=== PATIENT | male | born 1960 | race Caucasian/White ===

== ENCOUNTER 2020-08-22 10:52 | Outpatient (REF) | payer OTHER, SELFPAY ==
[2020-08-22 11:10] LABS: MANUAL DIFF FLAG NO
[2020-08-22 11:13] LABS: Basophils Percent Auto 0.3 % (0-2); Eosinophils Absolute Auto 0.2 X10*3/uL (0.0-0.4); Eosinophils Percent Auto 3.6 % (0-4); Hematocrit 45.2 % (42-52); Hemoglobin 15.3 g/dl (14.0-18.0); Imm Gran Abs Auto 0.03 X10*3/uL (0.00-0.03); Imm Gran Pct Auto 0.5 % (0.0-0.4); Lymphocytes Absolute Auto 1.9 X10*3/uL (1.2-4.9); Mean Corpuscular HGB Conc 33.8 g/dl (31.0-36.0); Mean Corpuscular Hemoglobin 29.1 pg (27.0-33.0); Mean Corpuscular Volume 86.1 fL (80-98); Mean Platelet Volume 9.2 fL (9.4-12.4); Monocytes Absolute Auto 0.5 X10*3/uL (0.1-1.2); Monocytes Percent Auto 8.4 % (2-11); Neutrophils Absolute Auto 3.4 X10*3/uL (2.0-8.3); Neutrophils Percent Auto 56.2 % (45-73); Platelet Count 214 X10*3/uL (160-400); Red Blood Count 5.25 X10*6/uL (4.60-5.80); Red Cell Distribution Width 12.8 % (11.0-16.0); White Blood Count 6.1 X10*3/uL (4.8-10.8)
[2020-08-22 11:40] LABS: Estimated Average Glucose 111 mg/dL; Hemoglobin A1c % 5.5 %
[2020-08-22 11:44] LABS: Anion Gap 12 (12-20); Blood Urea Nitrogen 15 mg/dL (9-16); Calcium 8.7 mg/dL (8.4-10.2); Carbon Dioxide 28 mmol/L (22-29); Chloride 103 mmol/L (96-108); Cholesterol 195 mg/dL; Estimated Glomerular Filt Rate > 60; Glucose Fasting 111 mg/dL (60-99); HDL Cholesterol 36 mg/dL; LDL Cholesterol Calculated 90 mg/dl; Potassium 4.2 mmol/L (3.3-5.1); Sodium 139 mmol/L (135-145); Triglycerides 345 mg/dL
[2020-08-22 12:07] LABS: Prostate Specific Antigen Scr 1.11 ng/mL (<0.05-4.0)
== END 2020-08-22 10:53 | disposition home or self-care (01) ==
LOC: HO.LAB 10:52
PROVIDERS: PCP Internal Medicine; Visit Provider Nurse Practitioner Family
DX: I10 Essential (primary) hypertension (principal); Z12.5 Encounter for screening for malignant neoplasm of prostate
CPT/HCPCS: 36415; 80048; 80061; 83036; 84153; 85025

== ENCOUNTER 2021-10-19 04:20 | Emergency (ER) | payer OTHER, SELFPAY ==
[2021-10-19 04:39] VITALS: BP 112/74; PULSE 86; RESP 18; TEMP 36.8; O2SAT 96; BMI 34.2
--- NOTE | 2021-10-19 05:07 | ED.GENADULT ---
HPI - General Adult General Chief complaint: General Medical Stated complaint: food poisoning ? n/v/d after dinner Time Seen by Provider: 10/19/21 05:07 Source: patient Mode of arrival: ambulatory Limitations: no limitations History of Present Illness HPI narrative: Patient with vomiting and diarrhea after eating a hamburger that might have been old, he is concerned about food poisoning Onset (ago): hour(s) Severity: moderate Pain Consistency: intermittent Associated symptoms: fever/chills and nausea/vomiting Treatments prior to arrival: none Related Data Previous Rx's Medication Instructions Recorded lisinopril 20 mg tablet 20 mg PO DAILY 90 Days #90 tab 05/07/21 silver sulfadiazine 1 % topical 1 appl TOPICAL BID 10 Days #85 g 05/07/21 cream (Silvadene) ondansetron 4 mg disintegrating 4 mg PO Q8H 4 Days #12 tab 10/19/21 tablet Allergies Allergy/AdvReac Type Severity Reaction Status Date / Time No Known Allergies Allergy Verified 05/07/21 11:42 Review of Systems Constitutional: Constitutional: Reports no additional constitutional complaints Eyes: Eyes: Reports no additional eye complaints ENT: Denies dizziness Cardiovascular: Cardiovascular: Reports no additional cardiovascular complaints Respiratory: Respiratory: Reports as per HPI Gastrointestinal: Gastrointestinal: Reports no additional gastrointestinal complaints Musculoskeletal: Musculoskeletal: Reports no additional musculoskeletal complaints Integumentary/Breasts: Skin/Breast: Denies rash Neurologic: Reports system reviewed and no additional complaints, except as documented, Denies dizziness and Denies Sensory deficit (Neuro) Psychiatric: Psychiatric: Denies anxiety PMFSH Past Medical History Medical History Benign essential hypertension Hypertension Hypertriglyceridemia Impaired glucose tolerance Obesity (BMI 30-39.9) Surgical History H/O left knee surgery Family History Family History Father Liver cancer Hepatitis C Diabetes Mother Hypertension Maternal Grandmother Cancer Brother Lung cancer Social History Social History Housing: House Alcohol intake: current Alcohol intake frequency: holidays/special occasions only Patient Tobacco Use Status: Never used Tobacco e-Cigarette/Vaping Use: Never Used Second Hand Smoke Exposure: No Advance Directives: No Advance Directives Information Provided: No service: No Current occupational status: employed Physical Exam ED Vital Signs: Vital Signs - 24 hr 10/19/21 04:39 Temperature 98.3 F Pulse Rate 86 Respiratory Rate 18 Blood Pressure 112/74 Pulse Oximetry 96 BMI result Body Mass Index 34.2 Const General: healthy appearing Nutritional Appearance: average body habitus Orientation/consciousness: oriented to person and patient oriented x3 Limitations: no limitations HENMT Head: Yes normal to inspection Ears: external ears normal General nose exam: Normal external nose present Mouth: Normal oral and palatal mucosa present and oropharynx normal Throat: Yes posterior oropharynx normal Eyes General: appearance normal, both eyes and all related structures Neck Neck: Yes normal visual inspection Chest Chest palpation & inspection: normal inspection of the chest Resp Auscultation: clear to auscultation bilaterally Cardio Jugular venous distension: no JVD Rate: regular rate Rhythm: regular rhythm Heart sounds: S1 normal heart sound present and S2 normal heart sound present GI Inspection: Yes normal to inspection Palpation (GI): Soft to palpation, nontender and No hepatosplenomegaly present Auscultation: normal bowel sounds General: Yes no CVA tenderness Back/Spine/Pelvis Back: no CVA tenderness Skin General skin exam: no rashes or lesions noted Neuro General: oriented to person and patient oriented x3 Cranial nerves: Yes CN's II-XII intact bilaterally Motor exam (neuro): 5/5 motor strength present throughout Sensory Exam: No Sensory deficit (Neuro) Extrem General: Yes normal to inspection Psych Appearance: grossly normal Course Reevaluation(s) Reevaluation #1: patient feeling better will dc on zofran and clear liquid diet Time: 07:14 Medical Decision Making Lab Data Result diagrams: 10/19/21 05:28 10/19/21 05:28 Labs: Lab Results 10/19/21 10/19/21 Range/Units 05:28 05:28 WBC 8.3 (4.8-10.8) X10*3/uL RBC 5.82 H (4.60-5.80) X10*6/uL Hgb 16.8 (14.0-18.0) g/dl Hct 49.5 (42.0-52.0) % MCV 85.1 (80.0-98.0) fL MCH 28.9 (27.0-33.0) pg MCHC 33.9 (31.0-36.0) g/dl RDW 12.6 (11.0-16.0) % Plt Count 201 (160-400) X10*3/uL MPV 9.2 L (9.4-12.4) fL Immature Gran % (Auto) 0.5 H (0.0-0.4) % Neut % (Auto) 91.0 H (45-73) % Lymph % (Auto) 3.7 L (20-40) % [place] % (Auto) 3.4 (2-11) % Eos % (Auto) 1.3 (0-4) % Baso % (Auto) 0.1 (0-2) % Lymph # (Auto) 0.3 L (1.2-4.9) X10*3/uL [place] # (Auto) 0.3 (0.1-1.2) X10*3/uL Eos # (Auto) 0.1 (0.0-0.4) X10*3/uL Baso # (Auto) 0.0 (0.0-0.2) X10*3/uL Abs Immat Gran (auto) 0.04 H (0.00-0.03) X10*3/uL Absolute Neuts (auto) 7.6 (2.0-8.3) x10*3/uL Absolute Nucleated RBC 0.000 (0.0-0.012) X10*3/uL Nucleated RBC % (auto) 0.0 (0.0-0.2) /100WBC Smear Tech's Comments VERIFIED Sodium 137 (135-145) mmol/L Potassium 5.1 D (3.3-5.1) mmol/L Chloride 102 (96-108) mmol/L Carbon Dioxide 29 (22-29) mmol/L Anion Gap 11 L (12-20) BUN 13 (9-16) mg/dL Creatinine 1.24 (0.5-1.4) mg/dL Estim Creat Clear Calc 87.3 Estimated GFR 60 Random Glucose 165 H (60-115) mg/dL Calcium 9.3 D (8.4-10.2) mg/dL Discharge Plan Discharge Clinical Impression: Nausea vomiting and diarrhea Patient Disposition: Home, Self-Care Instructions: Acute Nausea and Vomiting (ED), Acute Diarrhea (ED) Additional Instructions: clear liquids for 48 hours Prescriptions: New ondansetron 4 mg tablet,disintegrating 4 mg PO Q8H 4 Days Qty: 12 0RF No Action lisinopril 20 mg tablet 20 mg PO DAILY 90 Days Qty: 90 0RF silver sulfadiazine [Silvadene] 1 % cream 1 appl topical BID 10 Days Qty: 85 0RF Rx Instructions: apply a 1.5 mm thickness Referrals: Karla Steel MD [Primary Care Provider] - 1 week Stand Alone Forms: Work/School Release
[2021-10-19 05:32] LABS: Basophils Percent Auto 0.1 % (0-2); Eosinophils Absolute Auto 0.1 X10*3/uL (0.0-0.4); Eosinophils Percent Auto 1.3 % (0-4); Hematocrit 49.5 % (42.0-52.0); Hemoglobin 16.8 g/dl (14.0-18.0); Imm Gran Abs Auto 0.04 X10*3/uL (0.00-0.03); Imm Gran Pct Auto 0.5 % (0.0-0.4); Lymphocytes Absolute Auto 0.3 X10*3/uL (1.2-4.9); Lymphocytes Percent Auto 3.7 % (20-40); MANUAL DIFF FLAG SCAN; Mean Corpuscular HGB Conc 33.9 g/dl (31.0-36.0); Mean Corpuscular Hemoglobin 28.9 pg (27.0-33.0); Mean Corpuscular Volume 85.1 fL (80.0-98.0); Mean Platelet Volume 9.2 fL (9.4-12.4); Monocytes Absolute Auto 0.3 X10*3/uL (0.1-1.2); Monocytes Percent Auto 3.4 % (2-11); Neutrophils Absolute Auto 7.6 x10*3/uL (2.0-8.3); Platelet Count 201 X10*3/uL (160-400); Red Blood Count 5.82 X10*6/uL (4.60-5.80); Red Cell Distribution Width 12.6 % (11.0-16.0); SCAN SMEAR FLAG 1; White Blood Count 8.3 X10*3/uL (4.8-10.8)
[2021-10-19] MEDS: ondansetron HCL 4 MG/2 ML VIAL IVPUSH (05:32)
[2021-10-19 05:33] LABS: SLIDE REVIEW VERIFIED
[2021-10-19] MEDS: 0.9 % Sodium Chloride 500 ML 250 ML IVCONT (05:36)
[2021-10-19 05:52] LABS: Anion Gap 11 (12-20); Blood Urea Nitrogen 13 mg/dL (9-16); Calcium 9.3 mg/dL (8.4-10.2); Carbon Dioxide 29 mmol/L (22-29); Chloride 102 mmol/L (96-108); Creatinine Clr Calc Pharmacy 87.3; Estimated Glomerular Filt Rate 60; Glucose Random 165 mg/dL (60-115); Potassium 5.1 mmol/L (3.3-5.1); Sodium 137 mmol/L (135-145)
--- NOTE | 2021-10-19 07:12 | PC.NURSE ---
care assumed for pt at this time. ivf taken down and pt reports feeling much better. pt appears well and denies any complaints. at bedside. plan for covid swab and dc home.
[2021-10-19 07:17] VITALS: BP 116/68; PULSE 85; RESP 18; O2SAT 100
[2021-10-19 07:38] LABS: COVID-19 Test Negative (Negative); IDNOW Serial# 16C4AD1C
== END 2021-10-19 07:43 | disposition home or self-care (01) ==
PROVIDERS: Emergency Provider Emergency Medicine; PCP Internal Medicine
DX: R11.2 Nausea with vomiting, unspecified (principal); R19.7 Diarrhea, unspecified; Z20.822 Contact with and (suspected) exposure to COVID-19; Z79.899 Other long term (current) drug therapy
CPT/HCPCS: 36415; 80048; 85025; 87635; 96361; 96374; 99284; J2405

== ENCOUNTER 2023-10-31 15:27 | Outpatient (AMB) | payer OTHER, SELFPAY ==
[2023-10-31 15:51] VITALS: BP 132/94; PULSE 82; O2SAT 98; BMI 34.6
--- NOTE | 2023-10-31 15:51 | A.OFFPC_ITS ---
Vital Signs 10/31/23 15:51 10/31/23 16:28 Height 6 ft Weight 255 lb 0.2 oz BMI 34.6 BP 132/94 H 140/80 H Blood Pressure Location Lt brachial Lt brachial Position Sitting Pulse 82 Pulse Source Pulse Oximeter Pulse Oximetry (%) 98 Oxygen Delivery Method Room Air Intake Visit Reasons: Annual PE due for colonoscopy Docketing Specialist Required: No Allergies No Known Allergies Allergy (Verified 10/31/23 15:51) Medication List - Last Reconciled 10/31/23 by Karla Steel MD lisinopril 30 mg PO DAILY 90 days Tobacco use date assessed: 10/31/23 Dental Screening Dental Screen Date: 10/31/23 Did you have a dental visit in the last 12 months?: No Did you have a dental problem in the last 6 months where you did not have access to dental care?: No HPI Annual PE due for colonoscopy HPI Details 62-year-old obese male with impaired glu cose tolerance hypertension hypercholesterolemia last seen in April 2021. Patient is here for physical exam. Urgent care visit December 2022 for epididymitis.. Forearm burn April 2021 [facility] Medical History (Updated 10/31/23 @ 16:43 by Karla Steel MD) Benign essential hypertension Hypertriglyceridemia Impaired glucose tolerance Obesity (BMI 30-39.9) Hypertension Surgical History H/O left knee surgery Family History Father Liver cancer Hepatitis C Diabetes Mother Hypertension Maternal Grandmother Cancer Brother Lung cancer Social History (Updated 10/31/23 @ 16:32 by Karla Steel MD) Housing: House Alcohol intake: current Alcohol intake frequency: holidays/special occasions only Comment: 2x a year 1 drink Patient Tobacco Use Status: Never used Tobacco e-Cigarette/Vaping Use: Never Used Second Hand Smoke Exposure: No service: No Current occupational status: employed Cognitive needs: No Hearing needs: No Vision needs: No Questionnaire Thrive Questionnaire Date Thrive assessed: 10/31/23 I am a: Patient What is your living situation today?: I have a steady place to live Within the past 12 months, did the food you bought not last and you didn't have the money to get more?: Never true Within the past 12 months, did you worry whether your food would run out before you got money to buy more?: Never true Do you have trouble paying for medicines?: No Do you have trouble getting transportation to medical appointments?: No Do you have trouble paying your heating and electricity bill?: No Do you have trouble taking care of your child, family member or friend?: No Do you have trouble with day-to-day activities such as bathing, preparing meals, shopping, managing finances, etc.?: No Are you currently unemployed and looking for a job?: No Are you interested in more education?: No Please select the resources that you would like help with: None Currently or been in a relationship where the following occur: no concerns reported THRIVE Score: 0 AUDIT C Alcohol Use Questionnaire (AUDIT-C) 1. How often do you have a drink containing alcohol?: Never 3. How often do you have six or more drinks on one occasion?: Never Total Score: 0 KANDACE-7 AMB Questionnaire KANDACE-7 Date KANDACE - 7 assessed: 10/31/23 Feeling nervous, anxious, or on edge: 0 = Not at all Not being able to stop or control worryin = Not at all Worrying too much about different things: 0 = Not at all Trouble relaxin = Not at all Being so restless that it is hard to sit still: 0 = Not at all Becoming easily annoyed or irritable: 0 = Not at all Feeling afraid as if something awful might happen: 0 = Not at all Total KANDACE-7 score (0-4 normal; 5-9 mild; 10-14 moderate; 15-21 severe): 0 Source: Developed by Drs. Michael Palmer, Trang Leos, Danyel Nova and colleagues, with an educational terri from [employer]. KANDACE-7 Assessment Billing KANDACE-7 Assessment Tool: KANDACE-7 Assessment 49765 Review of Systems Const Denies poor appetite and Denies weakness Eyes Denies no additional complaints ENT Reports Normal hearing present, Denies dizziness, Denies nasal congestion, Denies tinnitus and Denies sore throat Card Denies chest pain, Denies syncope, Denies rapid heart rate and Denies dyspnea Resp Denies cough and Denies dyspnea GI Denies change in stool character, Reports constipation, Denies diarrhea, Denies nausea and Denies vomiting Denies dysuria and Denies urinary frequency Neuro Reports Normal hearing present, Denies confusion, Denies dizziness, Denies syncope and Denies weakness Psych Denies confusion Physical exam (Primary Care) Vital Signs: Last Vital Signs Pulse 82 10/31/23 15:51 BP 132/94 H 10/31/23 15:51 Pulse Ox 98 10/31/23 15:51 Oxygen Delivery Method Room Air 10/31/23 15:51 BMI result Body Mass Index 34.6 Tobacco/Smoking Status: Tobacco use Status Tobacco use date assessed 10/31/23 10/31/23 15:53 Patient Tobacco Use Status Never used Tobacco 10/31/23 15:53 e-Cigarette/Vaping Use Never Used 10/31/23 15:53 Thrive Assessment: Date of Thrive Assessment Date Thrive assessed 10/31/23 10/31/23 15:53 Currently or been in a relationship where the following occur: no concerns reported Const General: No confusion Orientation/consciousness: No confusion HENMT Head: Yes normocephalic Ears: external ears normal and TM's normal bilaterally Face and sinus: Yes normal facial exam Mouth: moist mucous membranes Throat: Yes tonsils normal Eyes Conjunctivae: conjunctivae normal Pupils: Equal, round and reactive pupils present and Pupil accommodation reflex normal Direct Ophthalmoscopy: normal light reflex Neck Neck: No lymphadenopathy Thyroid: Thyroid normal Chest Chest palpation & inspection: normal inspection of the chest Resp Effort & Inspection: normal respiratory effort and no audible wheezes Auscultation: clear to auscultation bilaterally, no crackles, no wheezes and lung sounds not diminished Cardio Rate: regular rate Rhythm: regular rhythm Peripheral pulses: radial pulses present and dorsalis pedis present GI Palpation (GI): no masses Auscultation: normal bowel sounds and normoactive bowel sounds Rectal Exam - Male: Yes deferred Skin General skin exam: no rashes or lesions noted Rashes: no rashes Neuro General: No confusion Cranial nerves: Yes Equal, round and reactive pupils present and Yes Normal hearing present Cognition (Neuro): normal cognition Gait exam (Neuro): Normal gait present Motor exam (neuro): 5/5 motor strength present throughout Deep tendon reflexes (DTR's): Right brachioradialis reflex intensity grade: 2+, Left brachioradialis reflex intensity grade: 2+, Right patellar reflex intensity grade: 2+ and Left patellar reflex intensity grade: 2+ Extrem General: No edema Assessment and Plan Assessment & Plan (1) Annual physical exam: Code(s): Z00.00 - Encounter for general adult medical examination without abnormal findings (2) Hypertension: Code(s): I10 - Essential (primary) hypertension Qualifiers: Hypertension type: essential hypertension Qualified Code(s): I10 - Essential (primary) hypertension Plan: Continue with blood pressure medication. Decrease salt intake and exercise pres ently on lisinopril 20 mg once a day (3) Obesity (BMI 30-39.9): Code(s): E66.9 - Obesity, unspecified Plan: Diet and exercise (4) Impaired glucose tolerance: Code(s): R73.02 - Impaired glucose tolerance (oral) Plan: Decrease the amount of carbohydrate intake, pasta, bread, rice and potatoes are all sugar and that is aside from all the sweet stuff, remember that fruits are good but they are Sweet also. Advised to get blood work (5) Hypertriglyceridemia: Code(s): E78.1 - Pure hyperglyceridemia Plan: Avoid fried foods, chicken skin, eggs, butter margarine, pastries and meat. Be it pork or beef they have a lot of cholesterol LDL goal of less than 130 and triglyceride of less than 150 advised to get blood work (6) Colon cancer screening: Code(s): Z12.11 - Encounter for screening for malignant neoplasm of colon Plan: Colon cancer screening requested (7) Erectile dysfunction: Code(s): N52.9 - Male erectile dysfunction, unspecified (8) Tinea cruris: Code(s): B35.6 - Tinea cruris Orders: Orders Complete Blood Count Auto Diff Today I10 - Essential (primary) hypertension Comprehensive Met. Panel Today I10 - Essential (primary) hypertension Lipid Panel Today E78.00 - Pure hypercholesterolemia, unspecified, I10 - Essential (primary) hypertension Prostate Specific Antigen Scr Today I10 - Essential (primary) hypertension Testosterone, Total Today N52.9 - Male erectile dysfunction, unspecified Free T4 (Free Thyroxine) Today I10 - Essential (primary) hypertension Thyroid Stimulating Hormone Today I10 - Essential (primary) hypertension Vitamin B12 and Folate Today I10 - Essential (primary) hypertension Referrals Gastroenterology Referral Z12.11 - Encounter for screening for malignant neoplasm of colon Urology Referral N50.89 - Other specified disorders of the male genital organs, N52.9 - Male erectile dysfunction, unspecified Medications: New sildenafil administer 30 minutes to 4 hours before activity 50 mg PO DAILY PRN 14 tabs 0RF sexual activity N52.9 - Male erectile dysfunction, unspecified clotrimazole 1% 1 appl topical BID 4 weeks 45 grams 0RF B35.6 - Tinea cruris Changed From lisinopril 20 mg PO DAILY 90 days 90 tabs 0RF I10 - Essential (primary) hypertension To lisinopril 30 mg PO DAILY 90 days 90 tabs 2RF I10 - Essential (primary) hypertension Coding Level of Care Code Est Pt Prev Care 40-64y(60817) Diagnoses Annual physical exam Z00.00 Essential hypertension I10 Hypertension type: essential hypertension Obesity (BMI 30-39.9) E66.9 Impaired glucose tolerance R73.02 Hypertriglyceridemia E78.1 Colon cancer screening Z12.11 Erectile dysfunction N52.9 Tinea cruris B35.6 Additional Codes KANDACE-7 Assessment Billing - KANDACE-7 Assessment Tool: KANDACE-7 Assessment [id number] ([id number])
[2023-10-31 16:28] VITALS: BP 140/80
== END 2023-10-31 16:51 | disposition home or self-care (01) ==
PROVIDERS: PCP Internal Medicine; Visit Provider Internal Medicine
DX: Z00.00 Encounter for general adult medical examination without abnormal findings (principal); E66.9 Obesity, unspecified; Z68.34 Body mass index [BMI] 34.0-34.9, adult; I10 Essential (primary) hypertension; R73.02 Impaired glucose tolerance (oral); E78.1 Pure hyperglyceridemia; Z12.11 Encounter for screening for malignant neoplasm of colon; N52.9 Male erectile dysfunction, unspecified; B35.6 Tinea cruris
CPT/HCPCS: 99396

== ENCOUNTER 2024-01-13 12:19 | Outpatient (AMB) | payer OTHER, SELFPAY ==
[2024-01-13 12:20] VITALS: BP 112/80; PULSE 68; TEMP 36.7; O2SAT 94; BMI 34.4
--- NOTE | 2024-01-13 12:20 | AM.OFFWIN_ITS ---
Intake Vital Signs 01/13/24 12:20 Height 6 ft Weight 254 lb BMI 34.4 BP 112/80 Blood Pressure Location Rt brachial Position Sitting Pulse 68 Pulse Source Pulse Oximeter Temp 98.1 F Temp Source Oral Pulse Oximetry (%) 94 Oxygen Delivery Method Room Air Intake Visit Reasons: EP RT eyelid red swollen pain Intake Note: Pt is here today c/o Rt eye lid swollen and red x4days Patient Tobacco Use Status: Never used Tobacco Allergies No Known Allergies Allergy (Verified 01/13/24 12:20) HPI HPI Comments History of Present Illness Details 63 yo m right eye irritation. watery dis charge. no fever or chills PFSH Medical History (Updated 10/31/23 @ 16:43 by Karla Steel MD) Benign essential hypertension Hypertriglyceridemia Impaired glucose tolerance Obesity (BMI 30-39.9) Hypertension Surgical History H/O left knee surgery Family History Father Liver cancer Hepatitis C Diabetes Mother Hypertension Maternal Grandmother Cancer Brother Lung cancer Social History (Updated 10/31/23 @ 16:32 by Karla Steel MD) Housing: House Alcohol intake: current Alcohol intake frequency: holidays/special occasions only Comment: 2x a year 1 drink Patient Tobacco Use Status: Never used Tobacco e-Cigarette/Vaping Use: Never Used Second Hand Smoke Exposure: No service: No Current occupational status: employed Cognitive needs: No Hearing needs: No Vision needs: No Review of Systems Eyes Reports irritation Physical Exam Vital Signs: Last Vital Signs Temp 98.1 F 01/13/24 12:20 Pulse 68 01/13/24 12:20 BP 112/80 01/13/24 12:20 Pulse Ox 94 01/13/24 12:20 Oxygen Delivery Method Room Air 01/13/24 12:20 BMI result Body Mass Index 34.4 Const General: cooperative, healthy appearing, no acute distress and alert Orientation/consciousness: patient oriented x3 Limitations: no limitations HEENT Other: area of erythema upper R eye with puncti Head: Yes normal to inspection Ears: hearing grossly normal bilaterally General nose exam: Normal external nose present Resp Effort & Inspection: normal respiratory effort and able to speak in complete sentences Cardio Rate: regular rate Skin General skin exam: no rashes or lesions noted Neuro General: patient oriented x3 Extrem General: Yes normal to inspection Assessment & Plan Assessment & Plan (1) Stye: Code(s): H00.019 - Hordeolum externum unspecified eye, unspecified eyelid Qualifiers: Laterality: right Eyelid: upper Qualified Code(s): H00.011 - Hordeolum externum right upper eyelid Plan: stye right upper right eye lid. - warm compression Coding Level of Care Code Est Pt Level 3 (83338) Diagnoses Hordeolum externum of right upper eyelid H00.011 Laterality: right Eyelid: upper
== END 2024-01-13 12:37 | disposition home or self-care (01) ==
PROVIDERS: PCP Internal Medicine; Visit Provider Physician Assistant
DX: H00.011 Hordeolum externum right upper eyelid (principal)
CPT/HCPCS: 99213

== ENCOUNTER 2024-01-22 15:15 | Outpatient (AMB) | payer OTHER, SELFPAY ==
--- NOTE | 2024-01-22 15:18 | MHC.OFFVIS ---
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 Discussed check testosterone levels, F/T. Will check PSA Trial daily Cialis 5 mg. PFSH Medical History Benign essential hypertension Hypertriglyceridemia Impaired glucose tolerance Obesity (BMI 30-39.9) Hypertension Surgical History H/O left knee surgery Family History Father Liver cancer Hepatitis C Diabetes Mother Hypertension Maternal Grandmother Cancer Brother Lung cancer Social History Housing: House Alcohol intake: current Alcohol intake frequency: holidays/special occasions only Comment: 2x a year 1 drink Patient Tobacco Use Status: Never used Tobacco e-Cigarette/Vaping Use: Never Used Second Hand Smoke Exposure: No service: No Current occupational status: employed Cognitive needs: No Hearing needs: No Vision needs: No Review of Systems Const All systems reviewed & are unremarkable except as noted in HPI and below Reports no additional complaints Eyes Reports no additional complaints ENT Reports no additional complaints Card Reports no additional complaints Resp Reports no additional complaints GI Reports no additional complaints Reports as per HPI Musc Reports no additional complaints Skin/Breast Reports system reviewed and no additional complaints, except as documented Neuro Reports no additional complaints Psych Reports no additional complaints Endo Reports no additional complaints Clive/Lymph Reports no additional complaints Aller/Immun Reports no additional complaints Physical Exam Const General: healthy appearing, no acute distress and well developed Orientation/consciousness: patient oriented x3 HEENT Head: Yes normocephalic and Yes atraumatic Eyes Conjunctivae: conjunctivae normal Neck Neck: Yes normal visual inspection Chest Chest palpation & inspection: normal inspection of the chest Resp Effort & Inspection: normal respiratory effort Cardio Rate: regular rate GI Inspection: Yes normal to inspection Skin General skin exam: no rashes or lesions noted Neuro General: patient oriented x3 Extrem General: No pedal edema Psych Appearance: grossly normal Affect: normal affect Results AMB Urinalysis, Automated UA Leukoctes Cancelled Francia/uL Last Edit by Peri Manuel on 01/22/24 15:47 UA Leukoctes previously reported as 0 [employer] 01/22/24 15:47 UA Nitrite Cancelled Last Edit by [employer] on 01/22/24 15:47 UA Nitrite previously reported as Negative [employer] 01/22/24 15:47 UA Urobilinogen Cancelled mg/dL Last Edit by [employer] Manuel on 01/22/24 15:47 UA Urobilinogen previously reported as 0.2 [employer] Mar 01/22/24 15:47 UA Protein Cancelled mg/dL Last Edit by [employer] Manuel on 01/22/24 15:47 UA Protein previously reported as 15 [employer] 01/22/24 15:47 UA pH Cancelled Last Edit by [employer] Manuel on 01/22/24 15:47 UA pH previously reported as 7.0 [employer] 01/22/24 15:47 UA Blood Cancelled Eric/uL Last Edit by [employer] Manuel on 01/22/24 15:47 UA Blood previously reported as 0 [employer] 01/22/24 15:47 UA Specific [place] Cancelled Last Edit by [employer] on 01/22/24 15:47 UA Specific [place] previously reported as 1.015 [employer] 01/22/24 15:47 UA Ketone Cancelled Last Edit by [employer] on 01/22/24 15:47 UA Ketone previously reported as Negative [employer] 01/22/24 15:47 UA Bilirubin Cancelled mg/dL Last Edit by [employer] Manuel on 01/22/24 15:47 UA Bilirubin previously reported as 0 [employer] 01/22/24 15:47 UA Glucose Cancelled mg/dL Last Edit by Peri Manuel on 01/22/24 15:47 UA Glucose previously reported as 0 Peri Manuel 01/22/24 15:47 CANCELLED error Results Reviewed Results Reviewed: Laboratory Last Values Urine pH (Auto) Cancelled 01/22/24 15:44 Specific [place] (Auto) Cancelled 01/22/24 15:44 Urine Protein (Auto) Cancelled 01/22/24 15:44 Glucose (UA)(Auto) Cancelled 01/22/24 15:44 Urine Ketones (Auto) Cancelled 01/22/24 15:44 Urine Blood (Auto) Cancelled 01/22/24 15:44 Urine Nitrite (Auto) Cancelled 01/22/24 15:44 Urine Bilirubin (Auto) Cancelled 01/22/24 15:44 Urine Urobilinogen (Auto) Cancelled 01/22/24 15:44 Leukocyte Esterase (Auto) Cancelled 01/22/24 15:44 Assessment & Plan Assessment & Plan (1) Erectile dysfunction: Code(s): N52.9 - Male erectile dysfunction, unspecified Category: Medical (2) Prostate cancer screening: Code(s): Z12.5 - Encounter for screening for malignant neoplasm of prostate Category: Medical Plan Cialis 5 mg daily Check Testestorone, PSA levels FU in 3 months Medications: New tadalafil (Cialis) [id number] [facility] [id number] Member [id number] 5 mg PO DAILY 30 tabs 5RF Patient Instructions: The patient had an opportunity to ask questions regarding treatment plan. The patient expressed understanding and agreement with the above treatment plan. The patient is aware they should contact our office by phone for worsening of their current condition or the appearance of new symptoms. Compliance is encouraged with any medications and followup testing that is ordered. It is a privilege to be allowed the opportunity to participate in the urologic care of your patient. If you have any questions or concerns regarding treatment for the above conditions please do not hesitate to contact me. The office telephone contact is [phone]. This note is constructed in part using voice recognition software. While every effort has been made to ensure accuracy bessemer converter blower errors may have been included. Yours sincerely, Cece Gtz MD Coding Level of Care Code New Pt Level 3 (05777) Diagnoses Erectile dysfunction N52.9 Prostate cancer screening Z12.5
== END 2024-01-22 16:03 | disposition home or self-care (01) ==
PROVIDERS: PCP Internal Medicine; Visit Provider Urology
DX: N52.9 Male erectile dysfunction, unspecified (principal); Z12.5 Encounter for screening for malignant neoplasm of prostate
CPT/HCPCS: 99203

== ENCOUNTER → 2024-01-22 15:15 | Outpatient (BNVA) | payer OTHER, SELFPAY | PROVIDERS: PCP Internal Medicine; Visit Provider Urology | DX: N52.9 Male erectile dysfunction, unspecified (principal) | CPT/HCPCS: 81003 ==